=== PATIENT | female | born 1965 | race Caucasian/White ===

== ENCOUNTER → 2016-08-02 | Day surgery (SDC) | payer OTHER ==
[~2016-08-02] VITALS: Ht 170.2 cm; Wt 105.7 kg
[~2016-08-02] MED LIST: BACITRACIN PWD 50,000 UNITS VIAL As Ordered ONE; BACITRACIN PWD 50,000 UNITS VIAL IR ONE; BUPIVACAINE HCL 0.5% 30 ML VIAL As Ordered ONE; BUPIVACAINE HCL 0.5% 30 ML VIAL SC ONE; CINN500C9 PO; GLUC1CAP9 PO; HYDR-2807 PO; LIDOCAINE 2% INJ 100 MG/5 ML SDV (FOR ANES.) As Ordered ONE; LIDOCAINE 2% MDV 20 ML VIAL As Ordered ONE; LIDOCAINE 2% MDV 20 ML VIAL SC ONE; LR 1,000 ML IV SCH; MIDAZOLAM INJ 2 MG/2 ML VIAL (J2250) As Ordered ONE; NEOSPORIN GU IRRIG 20 ML VIAL As Ordered ONE; NEOSPORIN GU IRRIG 20 ML VIAL IR ONE; PROPOFOL 200 MG/20 ML VIAL As Ordered ONE; TYLETAB14 PO; [UNRECOGNIZED DRUG - OTHER] PO; ceFAZolin SOD 1 GM in D5W MINI-BAG PLUS 50 ML IV ONE; dexameTHASONE 4 MG/ML 1ML VIAL (J1100) As Ordered ONE; dexameTHASONE 4 MG/ML 1ML VIAL (J1100) XX ONE; fentaNYL 100 MCG/2 ML INJECTION (J3010) As Ordered ONE
[2016-08-02 07:33] LABS: CONTROL LINE HCG INT CTR LINE PRESENT
--- NOTE | 2016-08-02 10:02 | RO ---
DATE OF PROCEDURE: 08/02/2016 PREPROCEDURE DIAGNOSIS: Hallux limitus deformity, left foot. POSTPROCEDURE DIAGNOSIS: Hallux limitus deformity, left foot. OPERATIVE PROCEDURE: Cheilectomy first metatarsophalangeal joint, left foot. SURGEON: Dr. Donald Anderson DPM [employer] SUPERVISOR: None. ANESTHESIA: Local MAC. IRRIGATION: Dilute bacitracin, neomycin and polymyxin B solution. HEMOSTASIS: Ankle pneumatic tourniquet at 250 mmHg for 23 minutes. DESCRIPTION OF PROCEDURE: On 08/02/2016, this 51-year-old white female was taken from her hospital room to the operating room and placed on the operating table in supine position. Following the induction of IV sedation and local and regional anesthesia, the right lower extremity was prepped and draped in the usual aseptic manner. Attention was directed to the patient's left foot where the following procedure was performed: CHEILECTOMY FIRST METATARSOPHALANGEAL JOINT, LEFT FOOT: Attention was directed to the patient's left foot where there was noted to be limited range of motion on the first metatarsophalangeal joint of the left foot. At this time, a 6 cm incision was placed over the first metatarsophalangeal joint medial to the extensor tendon. The incision was deepened through subcutaneous tissues and all coursing venous tributaries were identified, underscored, clamped, cut, ligated and electrocoagulated as necessary. A linear capsulotomy was then performed in the same plane as the original skin incision. The capsule and periosteal structures were then dissected free in one continuous layer dorsally, medially and laterally, thus creating a capsule and periosteal type envelope. This delivered into view some spurring noted over the dorsal surface of the first metatarsal and approximately 25% of the articulate cartilage was denuded on the first metatarsal head and approximately 5 to 10 degrees on the proximal phalanx. The other cartilage was slightly thin but completely viable. Utilizing a metatarsal elevator, the sesamoids were released, as well as the base of the proximal phalanx. Utilizing a power saw, an osteotomy was performed through the medial eminence of the first metatarsal and exiting medial to the sesamoidal groove. The dorsal 25 to 30% of the first metatarsal head was then osteotomized from distal to proximal. Utilizing a hand-held rasp, the dorsal and medial surfaces were rasped to a smooth contour approximately 15 to 20% of the proximal phalanx was similarly osteotomized dorsally, removing the spur and some nonviable cartilage. This was additionally rasped with a hand held rasp. The wound was flushed with copious amounts of dilute bacitracin, neomycin and polymyxin B solution. There was some hypertrophied synovium noted around the first metatarsophalangeal joint and this was debrided. The capsular structures were coapted and maintained utilizing #3-0 Vicryl in a simple interrupted type fashion. Subcutaneous tissue was coapted and maintained utilizing #4-0 Monocryl in a simple interrupted type fashion. The skin incision was coapted and maintained using #4-0 Prolene in a simple interrupted and horizontal mattress type fashion. Following the completion of the surgical procedure, 4 mg of dexamethasone sodium phosphate was then instilled proximal to the surgical site. Attention was then directed towards bandaging where a sterile compressive bandage was applied consisting of Adaptic, 4 x 4's, 4 x 4 splints, Jenna, Kerlix and Coban. Ankle pneumatic tourniquet was rapidly deflated. Instantaneous capillary filling time was noted in digits 1 through 5 of the patient's left foot. The patient, having apparently tolerated the surgical procedure well, was taken from the operating room to the recovery room with vital signs stable, patient afebrile, for further monitoring by the Anesthesia Department. All surgical specimens removed during the operative procedure were sent to pathology for gross microscopic examination. Postoperative instructions given upon discharge.
[2016-08-02 11:00] VITALS: BP 185/98
--- NOTE | 2016-08-02 17:58 | REP ---
LEFT FOOT, THREE VIEWS: HISTORY: Status post cheilectomy. FINDINGS: Three portably obtained postprocedural radiographs of the left foot are obtained through overlying dressing. There is a plantar calcaneal spur and minimal spurring is seen in the medial malleolus at the ankle. 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 A distal first osteotomy is seen to have been done along its medial side. No other bony abnormality is seen. Signed by Omkar Mancera MD 08/02/2016 06:03 P
== END | disposition home or self-care (01) ==
LOC: M SDC 06:50
PROVIDERS: ATTEND Podiatrist
DX: M20.22 Hallux rigidus, left foot (principal); M20.21 Hallux rigidus, right foot; M76.822 Posterior tibial tendinitis, left leg; M76.821 Posterior tibial tendinitis, right leg; G47.33 Obstructive sleep apnea (adult) (pediatric); R06.83 Snoring; Z88.8 Allergy status to other drugs, medicaments and biological substances
CPT/HCPCS: 28289; 36415; 73630; 84703; 88300; 97116; J0690; J1100; J2250; J3010

== ENCOUNTER → 2016-11-30 | Outpatient (REF) | payer OTHER ==
[~2016-11-30] MED LIST changes: -BACITRACIN PWD 50,000 UNITS VIAL As Ordered ONE; -BACITRACIN PWD 50,000 UNITS VIAL IR ONE; -BUPIVACAINE HCL 0.5% 30 ML VIAL As Ordered ONE; -BUPIVACAINE HCL 0.5% 30 ML VIAL SC ONE; -LIDOCAINE 2% INJ 100 MG/5 ML SDV (FOR ANES.) As Ordered ONE; -LIDOCAINE 2% MDV 20 ML VIAL As Ordered ONE; -LIDOCAINE 2% MDV 20 ML VIAL SC ONE; -LR 1,000 ML IV SCH; -MIDAZOLAM INJ 2 MG/2 ML VIAL (J2250) As Ordered ONE; -NEOSPORIN GU IRRIG 20 ML VIAL As Ordered ONE; -NEOSPORIN GU IRRIG 20 ML VIAL IR ONE; -PROPOFOL 200 MG/20 ML VIAL As Ordered ONE; -ceFAZolin SOD 1 GM in D5W MINI-BAG PLUS 50 ML IV ONE; -dexameTHASONE 4 MG/ML 1ML VIAL (J1100) As Ordered ONE; -dexameTHASONE 4 MG/ML 1ML VIAL (J1100) XX ONE; -fentaNYL 100 MCG/2 ML INJECTION (J3010) As Ordered ONE
[2016-11-30 19:29] LABS: MEAN CORPUSCULAR HGB CONC 33.5 g/dl (32.0-36.5); MEAN CORPUSCULAR VOLUME 95.6 fl (80.0-96.0); RED CELL DISTRIBUTION WIDTH 12.2 % (11.5-14.5); WHITE BLOOD COUNT 6.1 K/mm3 (4.0-10.0)
[2016-11-30 20:01] LABS: FOLLICLE STIMULATING HORMONE 72.6 mIU/mL; LUTEINIZING HORMONE 27.7 mIU/mL
== END ==
LOC: M LAB REF 16:32
PROVIDERS: ATTEND Obstetrics & Gynecology
DX: R68.82 Decreased libido (principal); N94.5 Secondary dysmenorrhea; N92.1 Excessive and frequent menstruation with irregular cycle

== ENCOUNTER → 2017-01-05 | Outpatient (CLI) | payer OTHER ==
--- NOTE | 2017-01-05 16:07 | REP ---
LUMBAR SPINE, FIVE VIEWS: HISTORY: Right leg pain. There is no acute fracture or subluxation. The intervertebral discs are decreased in height consistent with disc degeneration. Osteophytes are present on L4 and 5. The facet joints are normal in appearance. IMPRESSION: Degenerative change as described above. Signed by Kirby Perry MD 01/05/2017 04:15 P
--- NOTE | 2017-01-05 16:11 | REP ---
RIGHT HIP, TWO VIEWS: HISTORY: Right leg pain. There is no acute fracture or dislocation. There is slight flattening of the superomedial femoral head that may be secondary to previous trauma. An osteophyte is present on the acetabulum. Minimal sclerosis is present in the acetabulum. IMPRESSION: Degenerative change as described above. Signed by Kirby Perry MD 01/05/2017 04:14 P
== END ==
LOC: M WUC 14:58
PROVIDERS: ATTEND Family Medicine
DX: M54.10 Radiculopathy, site unspecified (principal); M25.751 Osteophyte, right hip; M51.36 Other intervertebral disc degeneration, lumbar region

== ENCOUNTER → 2017-02-06 | Outpatient (CLI) | payer OTHER ==
--- NOTE | 2017-02-06 21:56 | REP ---
Clinical: Cough . Comparison: 05/13/2013 . Technique: PA and lateral. Findings: The mediastinum and cardiac silhouette are normal. The lung connolly are clear and without acute consolidation, effusion, or pneumothorax. The skeletal structures are intact and normal. Impression: 1. No acute cardiopulmonary process. Signed by Nikolas Saldaña MD 02/06/2017 09:47 P
== END ==
LOC: M WUC 14:45
PROVIDERS: ATTEND Family Medicine
DX: R05 Cough (principal)

== ENCOUNTER → 2017-05-07 | Outpatient (REF) | payer OTHER ==
[2017-05-07 12:18] LABS: ALBUMIN 3.8 GM/DL (3.2-5.2); ALBUMIN/GLOBULIN RATIO 1.09 (1.00-1.93); ALKALINE PHOSPHATASE 71 U/L (45-117); ALT/SGPT 31 U/L (12-78); ANION GAP 8 MEQ/L (8-16); AST/SGOT 14 U/L (15-37); BILIRUBIN,TOTAL 0.6 MG/DL (0.2-1.0); BLOOD UREA NITROGEN 10 MG/DL (7-18); CALCIUM LEVEL 8.8 MG/DL (8.5-10.1); CARBON DIOXIDE LEVEL 27 MEQ/L (21-32); CHLORIDE LEVEL 104 MEQ/L (98-107); CHOLESTEROL LEVEL 168 MG/DL (<200); CREATININE FOR GFR 0.64 MG/DL (0.55-1.02); GLOMERULAR FILTRATION RATE > 60.0 (>51); GLUCOSE, FASTING 89 MG/DL (70-105); POTASSIUM SERUM 4.1 MEQ/L (3.5-5.1); SODIUM LEVEL 139 MEQ/L (136-145); TOTAL PROTEIN 7.3 GM/DL (6.4-8.2); TRIGLYCERIDES LEVEL 114 MG/DL (<150)
== END ==
LOC: M SFHCCLAY 08:53
PROVIDERS: ATTEND Family Medicine
DX: I10 Essential (primary) hypertension (principal); E55.9 Vitamin D deficiency, unspecified

== ENCOUNTER 2017-08-08 06:54 | Day surgery (SDC) | payer OTHER ==
[2017-08-08] MEDS: NS 1,000 ML IV (07:17)
[2017-08-08] MEDS ORDERED: PROPOFOL 200 MG/20 ML VIAL As Ordered ×2 (08:20→08:27)
[2017-08-08] MEDS ORDERED: LIDOCAINE 2% INJ 100 MG/5 ML SDV (FOR ANES.) As Ordered (08:20)
== END 2017-08-08 09:15 | disposition home or self-care (01) ==
LOC: M OPP 06:54
DX: Z12.11 Encounter for screening for malignant neoplasm of colon (principal); Z80.0 Family history of malignant neoplasm of digestive organs; K58.9 Irritable bowel syndrome, unspecified; G47.30 Sleep apnea, unspecified; R06.83 Snoring; Z88.8 Allergy status to other drugs, medicaments and biological substances; K21.9 Gastro-esophageal reflux disease without esophagitis; Z80.3 Family history of malignant neoplasm of breast; Z87.891 Personal history of nicotine dependence
CPT/HCPCS: 45380

== ENCOUNTER → 2018-02-13 | Outpatient (REF) | payer OTHER ==
[2018-02-13 11:48] LABS: BASO % 0.4 % (0.0-1.0); EOS # 0.1 10^3/uL (0.0-0.50); EOS % 1.9 % (0.0-3.0); HEMATOCRIT 39.4 % (36.0-47.0); IMMATURE GRANULOCYTE % 0.2 % (0-3.0); LYMPH # 1.6 10^3/uL (1.5-4.5); LYMPH % 33.3 % (24.0-44.0); MEAN CORPUSCULAR HEMOGLOBIN 32.7 pg (27.0-33.0); MEAN CORPUSCULAR HGB CONC 35.5 g/dl (32.0-36.5); MEAN CORPUSCULAR VOLUME 92.1 fl (80.0-96.0); MONO # 0.4 10^3/uL (0.0-0.8); MONO % 8.2 % (0.0-5.0); NEUTROPHILS # 2.7 10^3/uL (1.8-7.7); PLATELET COUNT, AUTOMATED 275 10^3/uL (150-450); RED BLOOD COUNT 4.28 10^6/uL (4.00-5.40); RED CELL DISTRIBUTION WIDTH 12.7 % (11.5-14.5); WHITE BLOOD COUNT 4.8 10^3/uL (4.0-10.0)
[2018-02-13 12:32] LABS: TOTAL 25(OH) VITAMIN D 35.1 NG/ML (30.0-100.0)
[2018-02-13 12:45] LABS: ALBUMIN 3.8 GM/DL (3.2-5.2); ALKALINE PHOSPHATASE 84 U/L (45-117); ALT/SGPT 30 U/L (12-78); ANION GAP 9 MEQ/L (8-16); AST/SGOT 15 U/L (7-37); BILIRUBIN,TOTAL 0.5 MG/DL (0.2-1.0); BLOOD UREA NITROGEN 10 MG/DL (7-18); CALCIUM LEVEL 8.6 MG/DL (8.5-10.1); CARBON DIOXIDE LEVEL 28 MEQ/L (21-32); CHLORIDE LEVEL 106 MEQ/L (98-107); CHOLESTEROL LEVEL 171 MG/DL (<200); CREATININE FOR GFR 0.65 MG/DL (0.55-1.30); FREE T4 0.98 NG/DL (0.76-1.46); GLOMERULAR FILTRATION RATE > 60.0 (>51); GLUCOSE, FASTING 88 MG/DL (70-100); HDL CHOLESTEROL 66 MG/DL (>40); LDL CHOLESTEROL 86.4 MG/DL (<100); NON-HDL-C 105 MG/DL; SODIUM LEVEL 143 MEQ/L (136-145); TOTAL PROTEIN 7.6 GM/DL (6.4-8.2); TRIGLYCERIDES LEVEL 93 MG/DL (<150)
== END ==
LOC: M SFHCCLAY 09:11
DX: I10 Essential (primary) hypertension (principal)

== ENCOUNTER → 2018-12-27 | Outpatient (RCR) | payer OTHER ==
[~2018-12-27] MED LIST changes: +CARI1TAB7 PO; +DICL1GEL3; +IBUP-1114 PO; +MOTR200T44 PO; +PERCOCET PO; +VITA100067 PO
== END ==
LOC: M PT 12-25 07:47
PROVIDERS: ATTEND Family Medicine
DX: M54.5 Low back pain (principal); M51.27 Other intervertebral disc displacement, lumbosacral region

== ENCOUNTER 2019-01-22 07:24 | Outpatient (RCR) | payer OTHER | END 2019-01-26 | LOC: M PT 07:24 | PROVIDERS: ATTEND Family Medicine | DX: M51.27 Other intervertebral disc displacement, lumbosacral region (principal) ==

== ENCOUNTER → 2019-05-06 | Outpatient (CLI) | payer OTHER ==
--- NOTE | 2019-05-06 16:42 | REP ---
PA and lateral chest: Comparison is 02/06/2017. The lung connolly are clear. The cardiac size is normal. The katy, mediastinum, and skeletal structures are unremarkable. Impression: Negative PA and lateral chest. There is no interval change. Electronically Signed by Hal Nielson MD 05/06/2019 04:33 P
[2019-05-06 20:59] LABS: BASO % 0.5 % (0.0-1.0); EOS # 0.1 10^3/uL (0.0-0.5); HEMATOCRIT 41.5 % (36.0-47.0); HEMOGLOBIN 13.6 g/dl (12.0-15.5); LYMPH # 1.1 10^3/uL (1.5-5.0); LYMPH % 13.6 % (24.0-44.0); MEAN CORPUSCULAR HEMOGLOBIN 31.1 pg (27.0-33.0); MEAN CORPUSCULAR HGB CONC 32.8 g/dl (32.0-36.5); MEAN CORPUSCULAR VOLUME 94.7 fl (80.0-96.0); MONO # 0.7 10^3/uL (0.0-0.8); MONO % 8.7 % (0.0-5.0); NEUTROPHILS # 6.2 10^3/uL (1.5-8.5); PLATELET COUNT, AUTOMATED 268 10^3/uL (150-450); RED BLOOD COUNT 4.38 10^6/uL (4.00-5.40); WHITE BLOOD COUNT 8.1 10^3/uL (4.0-10.0)
[2019-05-06 21:18] LABS: ALBUMIN 3.6 GM/DL (3.2-5.2); ALT/SGPT 35 U/L (12-78); BILIRUBIN,TOTAL 0.4 MG/DL (0.2-1.0); BLOOD UREA NITROGEN 7 MG/DL (7-18); CALCIUM LEVEL 8.6 MG/DL (8.5-10.1); CARBON DIOXIDE LEVEL 29 MEQ/L (21-32); CHLORIDE LEVEL 103 MEQ/L (98-107); FREE T4 0.88 NG/DL (0.76-1.46); GLOMERULAR FILTRATION RATE > 60.0 (>51); GLUCOSE, FASTING 110 MG/DL (70-100); POTASSIUM SERUM 3.8 MEQ/L (3.5-5.1); SODIUM LEVEL 138 MEQ/L (136-145); TOTAL PROTEIN 7.5 GM/DL (6.4-8.2)
== END ==
LOC: M WUC 16:06
PROVIDERS: ATTEND Physician Assistant
DX: R05 Cough (principal)

== ENCOUNTER → 2020-01-01 | Outpatient (CLI) | payer OTHER | LOC: M LABSMTC 13:50 | PROVIDERS: ATTEND Pediatrics | DX: Z03.818 Encounter for observation for suspected exposure to other biological agents ruled out (principal); Z11.59 Encounter for screening for other viral diseases ==

== ENCOUNTER 2020-06-22 13:44 | Outpatient (RCR) | payer OTHER ==
[~2020-06-22 13:44] MED LIST changes: -HYDR-2807 PO; +HYDR-4433 PO
== END 2020-06-28 ==
LOC: M PT 13:44
PROVIDERS: ATTEND Physician Assistant
DX: M54.41 Lumbago with sciatica, right side (principal); M51.36 Other intervertebral disc degeneration, lumbar region; M51.26 Other intervertebral disc displacement, lumbar region

== ENCOUNTER → 2020-06-30 | Outpatient (REF) | payer OTHER ==
[2020-06-30 11:37] LABS: BASO % 0.5 % (0.0-1.0); EOS # 0.1 10^3/uL (0.0-0.5); EOS % 1.8 % (0.0-3.0); HEMATOCRIT 41.3 % (36.0-47.0); HEMOGLOBIN 13.5 g/dl (12.0-15.5); LYMPH # 1.8 10^3/uL (1.5-5.0); LYMPH % 40.4 % (24.0-44.0); MEAN CORPUSCULAR HEMOGLOBIN 31.3 pg (27.0-33.0); MEAN CORPUSCULAR HGB CONC 32.7 g/dl (32.0-36.5); MEAN CORPUSCULAR VOLUME 95.6 fl (80.0-96.0); MONO # 0.4 10^3/uL (0.0-0.8); MONO % 9.2 % (0.0-5.0); NEUTROPHILS # 2.1 10^3/uL (1.5-8.5); NEUTROPHILS % 47.9 % (36.0-66.0); PLATELET COUNT, AUTOMATED 256 10^3/uL (150-450); RED BLOOD COUNT 4.32 10^6/uL (4.00-5.40); WHITE BLOOD COUNT 4.3 10^3/uL (4.0-10.0)
[2020-06-30 11:48] LABS: AMORPHOUS SEDIMENT SMALL (NEGATIVE); APPEARANCE, URINE CLOUDY (CLEAR); BACTERIA, URINE AUTO NEGATIVE (NEGATIVE); BILIRUBIN, URINE AUTO NEGATIVE (NEGATIVE); BLOOD, URINE BLOOD NEGATIVE (NEGATIVE); COLOR, URINE YELLOW (YELLOW); GLUCOSE, URINE (UA) AUTO NEGATIVE (NEGATIVE); KETONE, URINE AUTO NEGATIVE (NEGATIVE); LEUKOCYTE ESTERASE, URINE AUTO TRACE (NEGATIVE); NITRITE, URINE AUTO NEGATIVE (NEGATIVE); PROTEIN, URINE AUTO NEGATIVE (NEGATIVE); RBC, URINE AUTO 1 /HPF (0-3); SPECIFIC GRAVITY URINE AUTO 1.013 (1.002-1.035); SQUAMOUS EPITHELIAL CELL UR AU 1 /HPF (0-6); UROBILINOGEN, URINE AUTO 0.2 mg/dL (0.0-2.0); WBC, URINE AUTO 1 /HPF (0-3)
[2020-06-30 11:52] LABS: ALBUMIN 3.7 GM/DL (3.2-5.2); ALT/SGPT 26 U/L (12-78); BILIRUBIN,TOTAL 0.4 MG/DL (0.2-1.0); BLOOD UREA NITROGEN 9 MG/DL (7-18); CALCIUM LEVEL 8.8 MG/DL (8.5-10.1); CARBON DIOXIDE LEVEL 30 MEQ/L (21-32); CHLORIDE LEVEL 108 MEQ/L (98-107); CHOLESTEROL LEVEL 172 MG/DL (<200); CREATININE FOR GFR 0.73 MG/DL (0.55-1.30); GLOMERULAR FILTRATION RATE > 60.0 (>51); GLUCOSE, FASTING 99 MG/DL (70-100); HDL CHOLESTEROL 63 MG/DL (>40); LDL CHOLESTEROL 90 MG/DL (<100); NON-HDL-C 109 MG/DL; POTASSIUM SERUM 4.4 MEQ/L (3.5-5.1); SODIUM LEVEL 139 MEQ/L (136-145); TOTAL 25(OH) VITAMIN D 24.4 NG/ML (30.0-100.0); TOTAL PROTEIN 7.4 GM/DL (6.4-8.2); TRIGLYCERIDES LEVEL 93 MG/DL (<150)
[2020-06-30 11:54] LABS: HEMOGLOBIN A1c 5.5 %
== END ==
LOC: M SFHCCLAY 08:34
PROVIDERS: ATTEND Physician Assistant
DX: I10 Essential (primary) hypertension (principal); Z68.41 Body mass index [BMI] 40.0-44.9, adult; E66.01 Morbid (severe) obesity due to excess calories; M54.41 Lumbago with sciatica, right side; G89.29 Other chronic pain; E55.9 Vitamin D deficiency, unspecified

== ENCOUNTER 2020-07-13 12:30 | Outpatient (RCR) | payer OTHER | END 2020-07-29 | LOC: M PT 12:30 | PROVIDERS: ATTEND Physician Assistant | DX: Z51.89 Encounter for other specified aftercare (principal); M54.41 Lumbago with sciatica, right side; M51.36 Other intervertebral disc degeneration, lumbar region; M51.26 Other intervertebral disc displacement, lumbar region ==

== ENCOUNTER → 2020-12-22 | Outpatient (REF) | payer OTHER ==
[2020-12-22 11:37] LABS: BASO % 0.4 % (0.0-1.0); EOS # 0.1 10^3/uL (0.0-0.5); EOS % 2.2 % (0.0-3.0); HEMATOCRIT 43.1 % (36.0-47.0); HEMOGLOBIN 14.6 g/dl (12.0-15.5); LYMPH # 1.9 10^3/uL (1.5-5.0); LYMPH % 39.5 % (24.0-44.0); MEAN CORPUSCULAR HEMOGLOBIN 32.2 pg (27.0-33.0); MEAN CORPUSCULAR HGB CONC 33.9 g/dl (32.0-36.5); MEAN CORPUSCULAR VOLUME 94.9 fl (80.0-96.0); MONO # 0.5 10^3/uL (0.0-0.8); MONO % 9.2 % (2.0-8.0); NEUTROPHILS # 2.4 10^3/uL (1.5-8.5); NEUTROPHILS % 48.5 % (36.0-66.0); PLATELET COUNT, AUTOMATED 275 10^3/uL (150-450); RED BLOOD COUNT 4.54 10^6/uL (4.00-5.40); WHITE BLOOD COUNT 4.9 10^3/uL (4.0-10.0)
[2020-12-22 12:47] LABS: ALBUMIN 3.9 GM/DL (3.2-5.2); ALT/SGPT 30 U/L (12-78); BILIRUBIN,TOTAL 0.5 MG/DL (0.2-1.0); BLOOD UREA NITROGEN 13 MG/DL (7-18); CALCIUM LEVEL 9.6 MG/DL (8.5-10.1); CARBON DIOXIDE LEVEL 28 MEQ/L (21-32); CHLORIDE LEVEL 105 MEQ/L (98-107); CHOLESTEROL LEVEL 175 MG/DL (<200); CREATININE FOR GFR 0.73 MG/DL (0.55-1.30); GLOMERULAR FILTRATION RATE > 60.0 (>51); GLUCOSE, FASTING 96 MG/DL (70-100); HDL CHOLESTEROL 72 MG/DL (>40); LDL CHOLESTEROL 85 MG/DL (<100); NON-HDL-C 103 MG/DL; POTASSIUM SERUM 4.1 MEQ/L (3.5-5.1); SODIUM LEVEL 140 MEQ/L (136-145); TOTAL 25(OH) VITAMIN D 23.8 NG/ML (30.0-100.0); TOTAL PROTEIN 7.6 GM/DL (6.4-8.2); TRIGLYCERIDES LEVEL 92 MG/DL (<150)
== END ==
LOC: M SFHCCLAY 07:23
PROVIDERS: ATTEND Physician Assistant
DX: R79.89 Other specified abnormal findings of blood chemistry (principal); E66.01 Morbid (severe) obesity due to excess calories; E55.9 Vitamin D deficiency, unspecified

== ENCOUNTER → 2021-07-04 | Outpatient (REF) | payer OTHER ==
[2021-07-04 12:54] LABS: ALBUMIN 3.9 GM/DL (3.2-5.2); ALT/SGPT 40 U/L (12-78); BILIRUBIN,TOTAL 0.6 MG/DL (0.2-1.0); BLOOD UREA NITROGEN 11 MG/DL (7-18); CALCIUM LEVEL 8.9 MG/DL (8.5-10.1); CARBON DIOXIDE LEVEL 29 MEQ/L (21-32); CHLORIDE LEVEL 108 MEQ/L (98-107); CREATININE FOR GFR 0.75 MG/DL (0.55-1.30); GLOMERULAR FILTRATION RATE > 60.0 (>51); GLUCOSE, FASTING 101 MG/DL (70-100); POTASSIUM SERUM 4.4 MEQ/L (3.5-5.1); SODIUM LEVEL 142 MEQ/L (136-145); TOTAL PROTEIN 7.6 GM/DL (6.4-8.2)
[2021-07-04 14:13] LABS: HEMOGLOBIN A1c 5.4 %
[2021-07-05 15:16] LABS: FREE T4 0.92 NG/DL (0.76-1.46)
[2021-07-05 15:37] LABS: BASO % 0.4 % (0.0-1.0); EOS # 0.1 10^3/uL (0.0-0.5); EOS % 2.5 % (0.0-3.0); HEMOGLOBIN 14.4 g/dl (12.0-15.5); LYMPH # 2.1 10^3/uL (1.5-5.0); MEAN CORPUSCULAR HEMOGLOBIN 31.2 pg (27.0-33.0); MEAN CORPUSCULAR HGB CONC 33.5 g/dl (32.0-36.5); MEAN CORPUSCULAR VOLUME 93.1 fl (80.0-96.0); MONO # 0.6 10^3/uL (0.0-0.8); MONO % 10.9 % (2.0-8.0); NEUTROPHILS # 2.5 10^3/uL (1.5-8.5); NEUTROPHILS % 46.8 % (36.0-66.0); PLATELET COUNT, AUTOMATED 283 10^3/uL (150-450); RED BLOOD COUNT 4.62 10^6/uL (4.00-5.40); WHITE BLOOD COUNT 5.3 10^3/uL (4.0-10.0)
== END ==
LOC: M SFHCCLAY 07:10
PROVIDERS: ATTEND Nurse Practitioner Family
DX: E55.9 Vitamin D deficiency, unspecified (principal); R73.01 Impaired fasting glucose; R41.3 Other amnesia

== ENCOUNTER → 2021-07-05 | Outpatient (REF) | payer OTHER | LOC: M SFHCCLAY 14:49 | PROVIDERS: ATTEND Nurse Practitioner Family | DX: Z53.20 Procedure and treatment not carried out because of patient's decision for unspecified reasons (principal) ==

== ENCOUNTER → 2021-07-06 | Outpatient (REF) | payer OTHER | LOC: M WUC 12:30 | PROVIDERS: ATTEND Physician Assistant | DX: R50.9 Fever, unspecified (principal) ==

== ENCOUNTER → 2021-07-13 | Outpatient (REF) | payer OTHER | LOC: M SFHCCLAY 09:07 | PROVIDERS: ATTEND Nurse Practitioner Family | DX: R41.3 Other amnesia (principal) ==

== ENCOUNTER → 2021-08-09 | Outpatient (CLI) | payer OTHER | LOC: M PLAIMG 14:37 | PROVIDERS: ATTEND Nurse Practitioner Family | DX: R41.3 Other amnesia (principal) ==

== ENCOUNTER → 2021-08-31 | Outpatient (REF) | payer OTHER ==
[2021-09-01 13:08] LABS: IgG P18 AB Absent (.); IgG P23 AB Absent (.); IgG P28 AB Absent (.); IgG P30 AB Absent (.); IgG P39 AB Absent (.); IgG P41 AB Absent (.); IgG P45 AB Present (.); IgG P66 AB Absent (.); IgG P93 AB Absent (.); IgM P23 AB Absent (.); IgM P39 AB Absent (.); IgM P41 AB Absent (.); LYME IgG WB INTERPRETATION Negative (.); LYME IgM WB INTERPRETATION Negative (.)
== END ==
LOC: M SFHCCLAY 09:02
PROVIDERS: ATTEND Nurse Practitioner Family
DX: R41.3 Other amnesia (principal)

== ENCOUNTER → 2021-10-26 | Outpatient (REF) | payer OTHER ==
[2021-10-26 16:30] LABS: ALT/SGPT 41 U/L (12-78); BILIRUBIN,TOTAL 0.6 MG/DL (0.2-1.0); BLOOD UREA NITROGEN 13 MG/DL (7-18); CALCIUM LEVEL 8.8 MG/DL (8.5-10.1); CARBON DIOXIDE LEVEL 30 MEQ/L (21-32); CHLORIDE LEVEL 105 MEQ/L (98-107); CREATININE FOR GFR 0.66 MG/DL (0.55-1.30); GLOMERULAR FILTRATION RATE > 60.0 (>51); GLUCOSE, FASTING 112 MG/DL (70-100); POTASSIUM SERUM 4.4 MEQ/L (3.5-5.1); RHEUMATOID FACTOR QUANT < 10.0 IU/ML (<15.0); SODIUM LEVEL 138 MEQ/L (136-145); TOTAL PROTEIN 7.8 GM/DL (6.4-8.2)
[2021-10-26 16:38] LABS: FOLATE 9.6 NG/ML; VITAMIN B12 LEVEL 354 PG/ML
== END ==
LOC: M LABDRAWC 15:37
PROVIDERS: ATTEND Psychiatry & Neurology Neurology
DX: R90.89 Other abnormal findings on diagnostic imaging of central nervous system (principal)

== ENCOUNTER → 2022-02-13 | Outpatient (CLI) | payer OTHER | LOC: M LABSMTC 10:12 | PROVIDERS: ATTEND Anesthesiology | DX: Z01.818 Encounter for other preprocedural examination (principal); Z11.52 Encounter for screening for COVID-19 ==

== ENCOUNTER 2022-02-15 07:47 | Day surgery (SDC) | payer OTHER ==
[~2022-02-15] VITALS: Ht 170.2 cm; Wt 112.4 kg
[~2022-02-15 07:47] MED LIST changes: +LIDOCAINE 2% 100MG/5ML SDV (FOR ANES.) As Ordered ONE; +NS 1,000 ML IV ONE; +fentaNYL 100 MCG/2 ML INJECTION As Ordered ONE; +propofoL 500 MG/50 ML VIAL As Ordered ONE
[2022-02-15 09:24] VITALS: BP 149/78
== END 2022-02-15 09:28 | disposition home or self-care (01) ==
LOC: M OPP 07:47
PROVIDERS: ATTEND Internal Medicine Gastroenterology
DX: K52.832 Lymphocytic colitis (principal); K64.0 First degree hemorrhoids; Z80.0 Family history of malignant neoplasm of digestive organs; K31.89 Other diseases of stomach and duodenum; G47.30 Sleep apnea, unspecified; Z99.89 Dependence on other enabling machines and devices; Z88.8 Allergy status to other drugs, medicaments and biological substances
CPT/HCPCS: 43239; 45380; 88305; J3010

== ENCOUNTER → 2022-06-13 | Outpatient (CLI) | payer OTHER ==
[~2022-06-13] MED LIST changes: -LIDOCAINE 2% 100MG/5ML SDV (FOR ANES.) As Ordered ONE; -NS 1,000 ML IV ONE; -fentaNYL 100 MCG/2 ML INJECTION As Ordered ONE; -propofoL 500 MG/50 ML VIAL As Ordered ONE
== END ==
LOC: M PLAIMG 15:40
PROVIDERS: ATTEND Podiatrist
DX: M76.822 Posterior tibial tendinitis, left leg (principal); M79.672 Pain in left foot

== ENCOUNTER → 2023-01-09 | Outpatient (CLI) | payer OTHER ==
[~2023-01-09] MED LIST changes: +PROHANCE 279.3MG/ML 15ML VIAL ONE; +PROHANCE 279.3MG/ML 5ML VIAL ONE
== END ==
LOC: M PLAIMG 14:57
PROVIDERS: ATTEND Psychiatry & Neurology Neurology
DX: R90.82 White matter disease, unspecified (principal)
CPT/HCPCS: 70553; A9576

== ENCOUNTER → 2023-01-17 | Outpatient (REF) | payer OTHER ==
[~2023-01-17] MED LIST changes: -PROHANCE 279.3MG/ML 15ML VIAL ONE; -PROHANCE 279.3MG/ML 5ML VIAL ONE
[2023-01-17 12:47] LABS: BASO % 0.7 % (0.0-1.0); EOS # 0.1 10^3/uL (0.0-0.5); EOS % 1.9 % (0.0-3.0); HEMATOCRIT 40.7 % (36.0-47.0); HEMOGLOBIN 13.6 g/dl (12.0-15.5); LYMPH # 1.6 10^3/uL (1.5-5.0); LYMPH % 38.5 % (24.0-44.0); MEAN CORPUSCULAR HEMOGLOBIN 31.4 pg (27.0-33.0); MEAN CORPUSCULAR HGB CONC 33.4 g/dl (32.0-36.5); MONO # 0.4 10^3/uL (0.0-0.8); MONO % 8.5 % (2.0-8.0); NEUTROPHILS # 2.1 10^3/uL (1.5-8.5); NEUTROPHILS % 50.2 % (36.0-66.0); PLATELET COUNT, AUTOMATED 229 10^3/uL (150-450); RED BLOOD COUNT 4.33 10^6/uL (4.00-5.40); WHITE BLOOD COUNT 4.3 10^3/uL (4.0-10.0)
[2023-01-17 13:13] LABS: HEMOGLOBIN A1c 5.4 % (4.0-6.0)
[2023-01-17 13:27] LABS: THYROID STIMULATING HORMONE 2.619 uIU/ML (0.55-4.78)
[2023-01-17 13:28] LABS: ALBUMIN 3.7 G/DL (3.2-5.2); ALKALINE PHOSPHATASE 72 U/L (46-116); ALT/SGPT 27 U/L (7.0-40); AST/SGOT 12 U/L (<34); BILIRUBIN,TOTAL 0.5 MG/DL (0.3-1.2); BLOOD UREA NITROGEN 12 MG/DL (9-23); CALCIUM LEVEL 8.2 MG/DL (8.5-10.1); CARBON DIOXIDE LEVEL 28 MMOL/L (20-31); CHLORIDE LEVEL 107 MMOL/L (98-107); CHOLESTEROL LEVEL 151 MG/DL (<200); CHOLESTEROL RISK RATIO 2.43 (<5); CREATININE FOR GFR 0.65 MG/DL (0.55-1.30); GLOMERULAR FILTRATION RATE > 60.0 (>51); GLUCOSE, FASTING 83 MG/DL (60-100); HDL CHOLESTEROL 62.1 MG/DL (>40); LDL CHOLESTEROL 72.7 MG/DL (<100); NON-HDL-C 88.9 MG/DL; SODIUM LEVEL 142 MMOL/L (136-145); TOTAL 25(OH) VITAMIN D 32.3 NG/ML (20.0-100.0); TOTAL PROTEIN 6.7 G/DL (5.7-8.2); TRIGLYCERIDES LEVEL 81 MG/DL (<150)
[2023-01-17 13:30] LABS: FREE T4 1.13 NG/DL (0.89-1.76)
== END ==
LOC: M SFHCCLAY 08:49
PROVIDERS: ATTEND Nurse Practitioner Family
DX: R73.01 Impaired fasting glucose (principal); E66.01 Morbid (severe) obesity due to excess calories; E55.9 Vitamin D deficiency, unspecified

== ENCOUNTER → 2023-01-17 | Outpatient (REF) | payer OTHER ==
[2023-01-17 12:56] LABS: ALBUMIN 3.9 G/DL (3.2-5.2); ALKALINE PHOSPHATASE 76 U/L (46-116); ALT/SGPT 29 U/L (7.0-40); AST/SGOT 11 U/L (<34); BILIRUBIN,TOTAL 0.5 MG/DL (0.3-1.2); BLOOD UREA NITROGEN 13 MG/DL (9-23); CALCIUM LEVEL 9.2 MG/DL (8.5-10.1); CARBON DIOXIDE LEVEL 28 MMOL/L (20-31); CHLORIDE LEVEL 108 MMOL/L (98-107); CREATININE FOR GFR 0.66 MG/DL (0.55-1.30); GLOMERULAR FILTRATION RATE > 60.0 (>51); GLUCOSE, FASTING 84 MG/DL (60-100); POTASSIUM SERUM 3.8 MMOL/L (3.5-5.1); SODIUM LEVEL 140 MMOL/L (136-145); TOTAL PROTEIN 6.9 G/DL (5.7-8.2)
[2023-01-17 12:58] LABS: THYROID STIMULATING HORMONE 3.152 uIU/ML (0.55-4.78); VITAMIN B12 LEVEL 393 PG/ML (211-911)
[2023-01-17 13:06] LABS: BASO % 0.5 % (0.0-1.0); EOS # 0.1 10^3/uL (0.0-0.5); EOS % 1.9 % (0.0-3.0); HEMATOCRIT 40.8 % (36.0-47.0); HEMOGLOBIN 13.7 g/dl (12.0-15.5); LYMPH # 1.6 10^3/uL (1.5-5.0); LYMPH % 37.6 % (24.0-44.0); MEAN CORPUSCULAR HEMOGLOBIN 31.5 pg (27.0-33.0); MEAN CORPUSCULAR HGB CONC 33.6 g/dl (32.0-36.5); MEAN CORPUSCULAR VOLUME 93.8 fl (80.0-96.0); MONO # 0.4 10^3/uL (0.0-0.8); MONO % 8.9 % (2.0-8.0); NEUTROPHILS # 2.2 10^3/uL (1.5-8.5); NEUTROPHILS % 50.9 % (36.0-66.0); PLATELET COUNT, AUTOMATED 232 10^3/uL (150-450); RED BLOOD COUNT 4.35 10^6/uL (4.00-5.40); WHITE BLOOD COUNT 4.3 10^3/uL (4.0-10.0)
[2023-01-19 05:09] LABS: ANTINUCLEAR ANTIBODIES DIRECT Negative (Negative); COPPER PLASMA 109 ug/dL (80-158); SJOGREN'S ANTI SS-A <0.2 AI (0.0-0.9); SJOGREN'S ANTI SS-B <0.2 AI (0.0-0.9)
[2023-01-23 06:09] LABS: ANTI DS-DNA AB Negative (Negative); CARDIOLIPIN IGA ANTIBODY <9 APL U/mL (0-11); CARDIOLIPIN IGG ANTIBODY <9 GPL U/mL (0-14); CARDIOLIPIN IGM ANTIBODY <9 MPL U/mL (0-12); VITAMIN E(ALPHA TOCOPHEROL) 9.2 mg/L (7.0-25.1); VITAMIN E(GAMMA TOCOPHEROL) 1.1 mg/L (0.5-5.5)
== END ==
LOC: M LABDRAWC 11:12
PROVIDERS: ATTEND Psychiatry & Neurology Neurology
DX: R90.82 White matter disease, unspecified (principal)

== ENCOUNTER → 2023-09-11 | Outpatient (CLI) | payer OTHER ==
[~2023-09-11] MED LIST changes: +DICL100G10; -DICL1GEL3
== END ==
LOC: M CLY 15:40
PROVIDERS: ATTEND Physician Assistant
DX: M25.561 Pain in right knee (principal); M25.461 Effusion, right knee

== ENCOUNTER 2023-10-10 10:43 | Outpatient (RCR) | payer OTHER | END 2023-10-28 | LOC: M OT 10:43 | PROVIDERS: ATTEND Psychiatry & Neurology Neurology | DX: R90.82 White matter disease, unspecified (principal) ==

== ENCOUNTER 2023-11-07 10:58 | Outpatient (RCR) | payer OTHER | END 2023-11-27 | LOC: M OT 10:58 | PROVIDERS: ATTEND Psychiatry & Neurology Neurology | DX: R90.82 White matter disease, unspecified (principal) ==

== ENCOUNTER → 2024-03-26 | Outpatient (REF) | payer OTHER ==
[2024-03-26 19:11] LABS: BASO % 0.6 % (0.0-1.0); EOS # 0.1 10^3/uL (0.0-0.5); EOS % 2.2 % (0.0-3.0); HEMATOCRIT 42.6 % (36.0-47.0); HEMOGLOBIN 14.5 g/dl (12.0-15.5); LYMPH # 1.8 10^3/uL (1.5-5.0); LYMPH % 36.8 % (24.0-44.0); MEAN CORPUSCULAR HEMOGLOBIN 31.9 pg (27.0-33.0); MEAN CORPUSCULAR VOLUME 93.6 fl (80.0-96.0); MONO # 0.5 10^3/uL (0.0-0.8); MONO % 9.3 % (2.0-8.0); NEUTROPHILS # 2.5 10^3/uL (1.5-8.5); NEUTROPHILS % 50.9 % (36.0-66.0); PLATELET COUNT, AUTOMATED 229 10^3/uL (150-450); RED BLOOD COUNT 4.55 10^6/uL (4.00-5.40); WHITE BLOOD COUNT 4.9 10^3/uL (4.0-10.0)
[2024-03-26 19:22] LABS: ALBUMIN 3.8 G/DL (3.2-5.2); ALKALINE PHOSPHATASE 80 U/L (46-116); ALT/SGPT 27 U/L (7.0-40); AST/SGOT 13 U/L (<34); BILIRUBIN,TOTAL 0.5 MG/DL (0.3-1.2); BLOOD UREA NITROGEN 10 MG/DL (9-23); CALCIUM LEVEL 8.9 MG/DL (8.5-10.1); CARBON DIOXIDE LEVEL 26 MMOL/L (20-31); CHLORIDE LEVEL 110 MMOL/L (98-107); CHOLESTEROL LEVEL 164 MG/DL (<200); CHOLESTEROL RISK RATIO 2.89 (<5); CREATININE FOR GFR 0.58 MG/DL (0.55-1.30); FREE T4 1.25 NG/DL (0.89-1.76); GLOMERULAR FILTRATION RATE > 60.0 (>51); GLUCOSE, FASTING 99 MG/DL (60-100); HDL CHOLESTEROL 56.7 MG/DL (>40); LDL CHOLESTEROL 93.7 MG/DL (<100); NON-HDL-C 107.3 MG/DL; POTASSIUM SERUM 4.6 MMOL/L (3.5-5.1); SODIUM LEVEL 142 MMOL/L (136-145); THYROID STIMULATING HORMONE 2.732 uIU/ML (0.55-4.78); TRIGLYCERIDES LEVEL 68 MG/DL (<150)
[2024-03-26 19:38] LABS: HEMOGLOBIN A1c 5.4 % (4.0-6.0)
== END ==
LOC: M SFHCCLAY 09:29
PROVIDERS: ATTEND Nurse Practitioner Family
DX: R73.01 Impaired fasting glucose (principal); E66.01 Morbid (severe) obesity due to excess calories; E55.9 Vitamin D deficiency, unspecified; Z68.41 Body mass index [BMI] 40.0-44.9, adult

== ENCOUNTER → 2024-04-16 | Outpatient (CLI) | payer OTHER | LOC: M RAD 13:47 | PROVIDERS: ATTEND Obstetrics & Gynecology | DX: N95.0 Postmenopausal bleeding (principal); D25.9 Leiomyoma of uterus, unspecified ==

== ENCOUNTER → 2024-07-14 | Outpatient (REF) | payer OTHER | LOC: M LAB REF 16:07 | PROVIDERS: ATTEND Nurse Practitioner Family | DX: J06.9 Acute upper respiratory infection, unspecified (principal) ==

== ENCOUNTER → 2025-04-09 | Outpatient (REF) | payer OTHER ==
[~2025-04-09] MED LIST changes: +CARI-555 PO; -CARI1TAB7 PO
== END ==
LOC: M LAB REF 12:41
PROVIDERS: ATTEND Internal Medicine Gastroenterology
DX: R19.7 Diarrhea, unspecified (principal)

== ENCOUNTER → 2025-04-15 | Outpatient (REF) | payer OTHER ==
[2025-04-15 12:59] LABS: BASO # 0.0 10^3/uL (0.0-0.2); BASO % 0.5 % (0.0-1.0); EOS # 0.1 10^3/uL (0.0-0.5); EOS % 2.9 % (0.0-3.0); LYMPH # 1.5 10^3/uL (1.5-5.0); LYMPH % 36.5 % (24.0-44.0); MONO # 0.4 10^3/uL (0.0-0.8); MONO % 8.7 % (2.0-8.0); NEUTROPHILS # 2.1 10^3/uL (1.5-8.5); NEUTROPHILS % 51.2 % (36.0-66.0); PLATELET COUNT, AUTOMATED 225 10^3/uL (150-450)
[2025-04-15 13:31] LABS: ALT/SGPT 22 U/L (7.0-40); AST/SGOT 17 U/L (<34); CALCIUM LEVEL 9.2 MG/DL (8.5-10.1); CARBON DIOXIDE LEVEL 30 MMOL/L (20-31); CHLORIDE LEVEL 108 MMOL/L (98-107); CHOLESTEROL LEVEL 168 MG/DL (<200); CHOLESTEROL RISK RATIO 2.67 (<5); CREATININE FOR GFR 0.72 MG/DL (0.55-1.30); GLOMERULAR FILTRATION RATE > 90.0 (>51); LDL CHOLESTEROL 89.1 MG/DL (<100); NON-HDL-C 105.1 MG/DL; POTASSIUM SERUM 4.4 MMOL/L (3.5-5.1); SODIUM LEVEL 142 MMOL/L (136-145); TRIGLYCERIDES LEVEL 80 MG/DL (<150)
[2025-04-15 13:33] LABS: FREE T4 1.22 NG/DL (0.89-1.76)
[2025-04-15 13:38] LABS: ESTIMATED AVERAGE GLUCOSE 111.0 MG/DL (60-110)
== END ==
LOC: M SFHCCLAY 08:22
PROVIDERS: ATTEND Nurse Practitioner Family
DX: R73.01 Impaired fasting glucose (principal); E66.01 Morbid (severe) obesity due to excess calories; E55.9 Vitamin D deficiency, unspecified; R41.3 Other amnesia